=== PATIENT | female | born 1955 | race Caucasian/White ===

== ENCOUNTER 2017-03-19 16:06 | Outpatient (CLI) | payer OTHER ==
--- NOTE | 2017-03-20 12:23 | XRAY Report ---
CERVICAL SPINE AP, LATERAL, OBLIQUES, AND ODONTOID VIEW: 03/19/2017 CLINICAL HISTORY: Neck pain. FINDINGS: Minimal spondylolisthesis is noted of C2 in relationship to C3. This most likely is a res ult of either mild muscle spasm or osteoarthritis of the facet joints. Moderate degree of disk space narrowing is noted at C3-4, C4-5, and C6-7. Mild disk space narrowing is noted at C5-6. Mild spurr ing is noted at the uncinate processes of C4, C5, C6, and C7. Prominent posterior spur formation is noted on the right at C3-4, C4-5, C5-6, and C6-7 with mild posterior spur formation seen at C7-T1. M oderate degree of posterior spur formation is noted on the left at C3-4, C4-5, C5-6, and C6-7. Mild posterior spur formation is noted on the left at C7-T1. Odontoid process appears intact. IMPRESSION: MODERATE DEGREE OF OSTEOARTHRITIS OF THE C-SPINE IS NOTED DISCUSSED ABOVE. JOB #: [id number] EXT JOB #:[id number]
== END 2017-03-19 16:07 | disposition home or self-care (01) ==
LOC: DI 16:06
PROVIDERS: ATTEND Physician Assistant Medical
DX: M47.892 Other spondylosis, cervical region (principal); M43.12 Spondylolisthesis, cervical region
CPT/HCPCS: 72050

== ENCOUNTER 2017-05-26 06:18 | Day surgery (SDC) | payer OTHER ==
[2017-05-26] MEDS ORDERED: LACTATED RINGERS 1,000 ML IV ONE ×2 (07:06→08:35)
[2017-05-26] MEDS ORDERED: LIDO GARGLE 30 ML BOTTLE PO ONE (07:45)
[2017-05-26] MEDS ORDERED: fentaNYL 100 MCG/2 ML VIAL IVP ONE (07:57)
[2017-05-26] MEDS ORDERED: MIDAZOLAM 2 MG/2 ML VIAL IVP ONE (07:57)
[2017-05-26 09:24] VITALS: BP 129/79
== END 2017-05-26 06:19 | disposition home or self-care (01) ==
LOC: SDS 06:18
PROVIDERS: ATTEND Surgery
PROC: 0DB48ZX Excision of Esophagogastric Junction, Via Natural or Artificial Opening Endoscopic, Diagnostic (ICD-10-PCS; principal; 2017-05-26 07:30)
DX: K21.0 Gastro-esophageal reflux disease with esophagitis (principal); K44.9 Diaphragmatic hernia without obstruction or gangrene; F41.9 Anxiety disorder, unspecified; F32.9 Major depressive disorder, single episode, unspecified; E55.9 Vitamin D deficiency, unspecified; E78.5 Hyperlipidemia, unspecified
CPT/HCPCS: 43239; 87081; A9270; J7120; 88305

== ENCOUNTER 2017-07-14 13:21 | Day surgery (SDC) | payer OTHER ==
[2017-07-14] MEDS ORDERED: LACTATED RINGERS 1,000 ML IV ONE (14:15)
[2017-07-14] MEDS ORDERED: fentaNYL 100 MCG/2 ML VIAL IVP ONE (15:58)
[2017-07-14] MEDS ORDERED: MIDAZOLAM 2 MG/2 ML VIAL IVP ONE (15:58)
[2017-07-14 16:43] VITALS: BP 105/68
== END 2017-07-14 13:22 | disposition home or self-care (01) ==
LOC: SDS 13:21
PROVIDERS: ATTEND Surgery
PROC: 0DBP8ZX Excision of Rectum, Via Natural or Artificial Opening Endoscopic, Diagnostic (ICD-10-PCS; principal; 2017-07-14 14:45)
DX: K62.89 Other specified diseases of anus and rectum (principal); K57.30 Diverticulosis of large intestine without perforation or abscess without bleeding; Z87.891 Personal history of nicotine dependence
CPT/HCPCS: 45380; J7120

== ENCOUNTER 2017-09-25 08:56 | Outpatient (CLI) | payer OTHER ==
[2017-09-25 09:37] LABS: BASOPHILS % (AUTO) 0.6 %; EOSINOPHILS # (AUTO) 0.3 10^3/uL (0.0-0.7); EOSINOPHILS % (AUTO) 4.6 %; HGB - HEMOGLOBIN 12.9 g/dL (12.0-16.0); LYMPHOCYTES # (AUTO) 1.8 10^3/uL (1.5-3.5); LYMPHOCYTES % (AUTO) 30.1 %; MEAN CORPUSCULAR HEMOGLOBIN 30.4 pg (27.0-31.0); MEAN CORPUSCULAR HGB CONC 34.4 g/dL (32.0-36.0); MEAN CORPUSCULAR VOLUME 88.3 fL (81.0-99.0); MEAN PLATELET VOLUME 6.5 fL (7.9-10.8); MONOCYTES # (AUTO) 0.4 10^3/uL (0.0-1.0); MONOCYTES % (AUTO) 7.1 %; NEUTROPHILS # (AUTO) 3.4 10^3/uL (1.5-6.6); NEUTROPHILS % (AUTO) 57.6 %; PLT - PLATELET COUNT 277 10^3/uL (130-450); RED BLOOD COUNT 4.25 10^6/uL (4.20-5.40); RED CELL DISTRIBUTION WIDTH 13.4 % (12.0-15.0); WHITE BLOOD COUNT 5.9 x10^3/uL (4.8-10.8)
[2017-09-25 10:10] LABS: ALBUMIN 4.2 g/dL (3.2-5.5); ALBUMIN/GLOBULIN RATIO 1.3 (1.0-2.2); ALKALINE PHOSPHATASE 97 IU/L (42-121); ALT ALANINE AMINOTRANSFERASE 30 IU/L (10-60); AST ASPARTATE AMINOTRANSFERASE 28 IU/L (10-42); BILIRUBIN,TOTAL 0.6 mg/dL (0.2-1.0); BUN - BLOOD UREA NITROGEN 13 mg/dL (6-20); CALCIUM 9.1 mg/dL (8.5-10.3); CARBON DIOXIDE - CO2 25 mmol/L (21-32); CHLORIDE 102 mmol/L (101-111); CHOL/HDL RATIO 3.5 (<4.4); CHOLESTEROL 219 mg/dL; CREATININE 0.7 mg/dL (0.4-1.0); GFR - MDRD 84 (>89); GLUCOSE 109 mg/dL (70-100); HDL CHOLESTEROL 62 mg/dL; LDL CHOLESTEROL,CALCULATED 126 mg/dL; SODIUM 138 mmol/L (135-145); TOTAL PROTEIN 7.4 g/dL (6.7-8.2); VLDL CHOLESTEROL 31 mg/dL
[2017-09-26 11:51] LABS: HEPATITIS C ANTIBODY NON-REACTIVE (NON-REACTIVE)
== END 2017-09-25 08:57 | disposition home or self-care (01) ==
LOC: LAB 08:56
PROVIDERS: ATTEND Physician Assistant Medical
DX: Z00.00 Encounter for general adult medical examination without abnormal findings (principal); E55.9 Vitamin D deficiency, unspecified; Z79.899 Other long term (current) drug therapy; Z11.59 Encounter for screening for other viral diseases
CPT/HCPCS: 36415; 80053; 80061; 82306; 83721; 84443; 85025; 86803

== ENCOUNTER 2017-12-25 11:15 | Outpatient (CLI) | payer OTHER ==
--- NOTE | 2017-12-26 14:15 | Mammography Report ---
DIGITAL SCREENING MAMMOGRAM: 12/25/2017 CLINICAL INDICATION: A 62-year-old nulliparous patient for screening. COMPARISON: 01/2016, 12/2014, 08/2013, 08/2012, 03/2011, 03/2010. TECHNIQUE: Routine CC and MLO projections were obtained of the breasts. FINDINGS: Parenchymal tissue within the breasts is predominantly fatty replaced. There are no dominant masses, suspicious microcalcifications, or secondary signs of malignancy. In comparison to the previous studies, there are no significant changes. IMPRESSION: NO MAMMOGRAPHIC EVIDENCE OF MALIGNANCY. NO SIGNIFICANT INTERVAL CHANGES. RECOMMENDATION: Screening mammography is recommended annually. BIRADS category 1 - negative. STANDARD QUALIFYING STATEMENTS: 1. This examination was reviewed with the aid of Computed-Aided Detection (CAD). 2. A negative or benign imaging report should not delay biopsy if clinically suspicious findings are present. Consider surgical consultation if warranted. More than 5% of cancers are not identified by imaging. 3. Dense breasts may obscure an underlying neoplasm. TD: 12/26/2017 14:14
== END 2017-12-25 11:16 | disposition home or self-care (01) ==
LOC: DI 11:15
PROVIDERS: ATTEND Physician Assistant Medical
DX: Z12.31 Encounter for screening mammogram for malignant neoplasm of breast (principal)
CPT/HCPCS: 77067

== ENCOUNTER 2018-01-22 10:24 | Outpatient (CLI) | payer OTHER | END 2018-01-22 10:25 | disposition home or self-care (01) | LOC: LAB.R 10:24 | PROVIDERS: ATTEND Physician Assistant Medical | DX: J02.9 Acute pharyngitis, unspecified (principal) | CPT/HCPCS: 87070 ==

== ENCOUNTER 2018-11-19 12:54 | Outpatient (CLI) | payer MEDICARE, OTHER ==
--- NOTE | 2018-11-19 15:09 | DEXA Report ---
Reason: POSTMENOPAUSAL Procedure Date: 11/19/2018 Accession Number: [id number] / [id number] Procedure: DEX - Dexa Spine and/or Hip CPT Code: FULL RESULT: EXAM: Dexa Spine and/or Hip DATE: 11/19/2018 1:30 PM CLINICAL HISTORY: POSTMENOPAUSAL TECHNIQUE: Dual energy x-ray absorptiometry (DXA) was performed on a [employer] System. Regions measured are the AP Spine, femoral neck, and if needed forearm. COMPARISON: None. In accordance with the International Society for Clinical Densitometry (ISCD) guidelines, data from previous exams may be reanalyzed using current recommendations and techniques. This is done to allow a more accurate basis for comparison with the current study. FINDINGS: The data for the lumbar spine is as follows: BMD (g/cm/cm) T-SCORE Z-SCORE REGION L1 0.884 -2.1 -0.4 L2 0.928 -2.3 -0.6 L3 1.071 -1.1 0.6 L4 1.038 -1.3 0.4 TOTAL 0.982 -1.7 0.0 NOTE: All evaluable vertebrae are used for classification The data for the hip is as follows: BMD (g/cm/cm) T-SCORE Z-SCORE REGION Neck 0.787 -1.8 -0.3 TOTAL 0.851 -1.2 0.0 NOTE: The femoral neck or total proximal femur, whichever is lowest, is used for classification. IMPRESSION: THE WHO CLASSIFICATION BASED ON THE INTERNATIONAL REFERENCE STANDARD IS OSTEOPENIA. THE FRACTURE RISK IS INCREASED. RECOMMENDATION: Patients with diagnosis of osteoporosis or osteopenia should have regular bone mineral density assessment. For those eligible for Medicare, routine testing is allowed once every 2 years. Testing frequency can be increased for patients who have rapidly progressing disease or for those who are receiving medical therapy to restore bone mass. COMMENT: World Health Organization (WHO) definitions for osteoporosis and osteopenia: NORMAL BMD: T-score at -1.0 or higher, fracture risk is low OSTEOPENIA BMD: T-score between -1.0 and -2.5, fracture risk is increased. OSTEOPOROSIS BMD: T-score at -2.5 or lower, fracture risk is high. National Osteoporosis Foundation recommends: 1. Obtain adequate dietary calcium (at least 1200 mg per day) and vitamin D (400-800 international units per day). 2. Participate, as appropriate, in regular weightbearing and muscle-strengthening exercise. 3. Avoid tobacco use and reduce alcohol and caffeine intake. 4. For more detailed information see the website at www.NOF.org.
== END 2018-11-19 12:55 | disposition home or self-care (01) ==
LOC: DI 12:54
PROVIDERS: ATTEND Internal Medicine
DX: M85.89 Other specified disorders of bone density and structure, multiple sites (principal); Z78.0 Asymptomatic menopausal state
CPT/HCPCS: 77080

== ENCOUNTER 2018-12-07 09:59 | Outpatient (CLI) | payer MEDICARE, OTHER | END 2018-12-07 10:00 | disposition home or self-care (01) | LOC: SC 09:59 | PROVIDERS: ATTEND Internal Medicine Pulmonary Disease | DX: G47.10 Hypersomnia, unspecified (principal); R06.81 Apnea, not elsewhere classified; R06.83 Snoring; G47.8 Other sleep disorders; R41.89 Other symptoms and signs involving cognitive functions and awareness | CPT/HCPCS: 99203; G0463; 99212 ==

== ENCOUNTER 2018-12-24 20:30 | Outpatient (CLI) | payer MEDICARE, OTHER | END 2018-12-24 20:31 | disposition home or self-care (01) | LOC: SC 20:30 | PROVIDERS: ATTEND Internal Medicine Pulmonary Disease | DX: G47.33 Obstructive sleep apnea (adult) (pediatric) (principal); G47.61 Periodic limb movement disorder | CPT/HCPCS: 95810 ==

== ENCOUNTER 2018-12-31 13:48 | Outpatient (CLI) | payer MEDICARE, OTHER ==
--- NOTE | 2018-12-31 16:22 | Mammography Report ---
Reason: SCREENING MAMMO Procedure Date: 12/31/2018 Accession Number: [id number] / [id number] Procedure: DANIS - Screening Mammo w/Dino CPT Code: FULL RESULT: EXAM: Screening Mammo w/Dino DATE: 12/31/2018 2:24 PM CLINICAL HISTORY: Routine screening TECHNIQUE: (B) - Bilateral CC and MLO views were obtained. COMPARISON: 12/25/2017, 02/14/2016, 01/27/2015 and 08/20/2013 PARENCHYMAL PATTERN: (F) - The breasts demonstrate diffuse fatty replacement bilaterally. FINDINGS: There is no significant interval change. There are no suspicious masses, calcifications, or areas of distortion. IMPRESSION: Negative examination. BI-RADS category 1. RECOMMENDATION: (ANNUAL) - Recommend routine annual screening mammography. BI-RADS CATEGORY: (1) - Negative. STANDARD QUALIFYING STATEMENTS: 1. This examination was not reviewed with the aid of Computer-Aided Detection (CAD). 2. A negative or benign imaging report should not preclude biopsy if clinically suspicious findings are present. 3. Dense breasts may obscure an underlying neoplasm. 4. This examination was reviewed with the aid of 3D breast imaging (tomosynthesis).
== END 2018-12-31 13:49 | disposition home or self-care (01) ==
LOC: DI 13:48
PROVIDERS: ATTEND Internal Medicine
DX: Z12.31 Encounter for screening mammogram for malignant neoplasm of breast (principal)
CPT/HCPCS: 77063; 77067

== ENCOUNTER 2019-01-04 08:16 | Outpatient (CLI) | payer MEDICARE, OTHER | END 2019-01-04 08:17 | disposition home or self-care (01) | LOC: SC 08:16 | PROVIDERS: ATTEND Nurse Practitioner Family | DX: G47.33 Obstructive sleep apnea (adult) (pediatric) (principal); G47.61 Periodic limb movement disorder | CPT/HCPCS: 99214; G0463; 99212 ==

== ENCOUNTER 2019-01-28 08:06 | Outpatient (CLI) | payer MEDICARE, OTHER ==
[2019-01-28 08:46] LABS: ALBUMIN 4.1 g/dL (3.2-5.5); ALBUMIN/GLOBULIN RATIO 1.3 (1.0-2.2); ALKALINE PHOSPHATASE 74 IU/L (42-121); ALT ALANINE AMINOTRANSFERASE 12 IU/L (10-60); AST ASPARTATE AMINOTRANSFERASE 21 IU/L (10-42); BILIRUBIN,TOTAL 0.6 mg/dL (0.2-1.0); BUN - BLOOD UREA NITROGEN 21 mg/dL (6-20); CARBON DIOXIDE - CO2 27 mmol/L (21-32); CHLORIDE 101 mmol/L (101-111); CHOL/HDL RATIO 5.1 (<4.4); CHOLESTEROL 262 mg/dL; CREATININE 0.7 mg/dL (0.4-1.0); GFR - MDRD 84 (>89); GLUCOSE 97 mg/dL (70-100); HDL CHOLESTEROL 51 mg/dL; LDL CHOLESTEROL,CALCULATED 174 mg/dL; LDL/HDL RATIO 3.4 (<4.4); SODIUM 139 mmol/L (135-145); TOTAL PROTEIN 7.2 g/dL (6.7-8.2); VLDL CHOLESTEROL 37 mg/dL
[2019-01-28 08:51] LABS: HB2 TOTAL 13.8 g/dL; HEMOGLOBIN A1C 0.61 g/dL; HEMOGLOBIN A1C % 6.2 % (4.6-6.2)
== END 2019-01-28 08:07 | disposition home or self-care (01) ==
LOC: LAB 08:06
PROVIDERS: ATTEND Internal Medicine
DX: R73.02 Impaired glucose tolerance (oral) (principal); E78.5 Hyperlipidemia, unspecified
CPT/HCPCS: 36415; 80053; 80061; 83036; 83721

== ENCOUNTER 2019-04-28 16:12 | Outpatient (CLI) | payer MEDICARE, OTHER ==
[2019-04-28 17:43] VITALS: BP 116/66
--- NOTE | 2019-04-28 17:43 | SLEEP CARE CONSULTATION ---
Information from patient questionnaire entered by Stacey Patino. I have reviewed and concur with the information entered by Stacey Patino. This document represents the service I personally performed and the decisions made by me, Shweta Christianson, RN, MSN, WIRE WEAVER. History of Present Illness Previous diagnosis: Mild, Obstructive Sleep Apnea-Hypopnea Syndrome AHI: 13.4 Reason for CPAP/BiPAP follow up: first compliance Equipment type: CPAP Equipment obtained from: [facility] Mask style: Full face (Dreamwear full face) Mask brand: Respironics Last cushion change: a week or 2 ago CPAP Compliance Data - Data Reviewed with Patient Average duration of nightly device use: 5.2 Compliance rate %: 100 Current pressure setting (cmH2O): 4-15 Humidity settin Heated hose settin Average residual AHI: 7.5 Central apnea: 1.0 Obstructive apnea: 2.0 Hypopnea: 4.5 Average large leak: 4 mins 42 secs Subjective Patient concerns: reports: mask discomfort (seems like the mask is too much for her face. She would like to try a nasal mask. ), dry mouth, nose, throat (1-2 times a week for oral dryness. ), other (She is pulling off after 4 hours because she does not like the face. ). denies: aerophagia, air blowing in eyes, mask leak noise, condensation in mask/hose, nasal congestion, epistaxis Observed to snore while using device: No (by traveling companions) Current pressure setting perceived as: comfortable On therapy, patient: reports: other (no change with CPAP use). denies: sleeping better, awakening more refreshed, being more awake and alert during the day, more rested overall, drowsiness while driving Initial [place] Sleepiness Scale score: 8 Current [place] Sleepiness Scale score: 5 Allergies and Home Medications Known drug allergies: No Home medication list reviewed: Yes Allergy and home medication list: Fluoxetine HCL 20mg cap one daily Gabapentin 300mg cap one daily at bedtime prn Omeprazole 20mg cap one daily Zyrtec Allergy (Ceterizine) 10mg cap one daily Probiotic Cap one daily Vitamin D 1000IU cap one daily Calcium Carbonate 600mg tab one daily Review of Systems Review of systems same as previous: No (two cataract surgeries with lens implant. Steroid injection for back. ) Physical Exam Blood Pressure: 116/66 Cuff size: regular Heart Rate: 104 (regular) O2 Saturation: 98 Height: 5 ft 3.5 in Weight (kg): 60.781 kg Body Mass Index: 23.3 BMI Classification: Healthy weight Impression and Plan 1. Obstructive Sleep Apnea-Hypopnea Syndrome, mild, with good treatment compliance and elevated residual apnea control. On CPAP therapy, the patient has noted no change. She is also not using CPAP all through the night as dislikes the largeness of mask interface. She asked for a smaller interface from [facility] but was declined. She also has oral dryness, so I showed her how to adjust the humidity up on a sample CPAP. She can reduce the heated hose is still dryness. Hand written instructions given. For her mask discomfort, I showed her samples I had and she chose the Wisp Dreamwear mask. I fitted her with a small cushion and made the frame smaller. She felt the mask more comfortable than current mask. It hoped that she is able to use through the night now. She was advised how maximum benefit of CPAP is found when able to use CPAP with all sleep. In addition, the last hours of sleep have more REM sleep which has increased apnea risk. If she finds mouth open, a chinstrap fitting can be completed. I also wrote an order for [facility] to be aware of new mask style. For residual AHI, I will change her autoCPAP pressure to [id number]. Patient is advised to contact me if the pressure change in uncomfortable. Patient's apnea severity and rationale for treatment to reduce apnea, improve sleep quality and reduce cardiovascular and cerebrovascular events was reviewed. I also reviewed the benefit of consistent device use of CPAP for gastric reflux, depression/anxiety. She would also like to camp with CPAP in her new camper. I will send her the Respironics battery options flyer when I receive from [facility]. * Change CPAP pressure to 10-15 cmH2O * Try new Wisp Dreamwear - small mask. * Adjust humidity / heated hose. * Use CPAP with all sleep. * Notify me if snoring with mask or feeling that the pressure is too much or too little * Return for follow up in 1-2 months, or sooner if concerns arise I spent 100% of this 45 minute visit face to face with the patient with greater than 50% of this was spent time counseling the patient and coordination of care.
== END 2019-04-28 16:13 | disposition home or self-care (01) ==
LOC: SC 16:12
PROVIDERS: ATTEND Nurse Practitioner Family
DX: G47.33 Obstructive sleep apnea (adult) (pediatric) (principal)
CPT/HCPCS: 99215; G0463; 99212

== ENCOUNTER 2019-06-29 10:33 | Outpatient (CLI) | payer MEDICARE, OTHER ==
[2019-06-29 11:47] VITALS: BP 110/60
--- NOTE | 2019-06-29 11:47 | SLEEP CARE CONSULTATION ---
Information from patient questionnaire entered by Kelly Arnold. I have reviewed and concur with the information entered by Kelly Arnold. This document represents the service I personally performed and the decisions made by me, Shweta Christianson, RN, MSN, LIBRARY SERVICES COORDINATOR. History of Present Illness Previous diagnosis: Mild, Obstructive Sleep Apnea-Hypopnea Syndrome AHI: 13.4 Reason for follow up: other (2 Month - pressure change) Equipment type: CPAP Equipment obtained from: [facility] Mask style: Full face Mask brand: Resmed Backup mask available: Yes Last cushion change: 1 month ago Prior sleep studies: Yes HPI additional information: Patient came in today reporting that she no longer wants to use CPAP. She tried to use it longer as advised to see if benefit but it only made her wake up frequently until she takes off the mask. The mask is constantly leaking. This is the second mask and only reduces leaks if mask uncomfortable. Once the mask is off, she sleeps well and is more rested. I gave her a mask but she was unable to use as was not able to connect to hose. It seems there must have been an adaptor from previous mask. She put it on today and I showed her how to connect to hose but still the mask felt uncomfortable. CPAP Compliance Data - Data Reviewed with Patient Average duration of nightly device use: 6h 25m Compliance rate %: 98.3 Current pressure setting (cmH2O): 10-15 Humidity settin Heated hose settin Average residual AHI: 5.3 Average large leak: 14 minutes On Oxygen: No Subjective Patient concerns: reports: mask discomfort (overtightening ), nasal congestion (chronic ), dry mouth, nose, throat (significant dry mouth and humidity turned down unknowingly to 3). denies: aerophagia, air blowing in eyes, mask leak noise, condensation in mask/hose, epistaxis Observed to snore while using device: No (single) Current pressure setting perceived as: comfortable (after a few nights) On therapy, patient: reports: other (She does not sleep as well with CPAP then with it. ) Initial [place] Sleepiness Scale score: 8 Current [place] Sleepiness Scale score: 5 Allergies and Home Medications Home medication list reviewed: Yes (inhaler added. Stopped gabapentin and probiotic) Review of Systems Review of systems same as previous: No (diagnosed with asthma) Physical Exam Blood Pressure: 110/60 Cuff size: long Heart Rate: 83 O2 Saturation: 97 Height: 5 ft 3.5 in Weight: 139 lb 3.2 oz Body Mass Index: 24.3 BMI Classification: Healthy weight Impression and Plan 1. Obstructive Sleep Apnea-Hypopnea Syndrome, moderate, with good treatment compliance and better apnea control. The residual AHI reduced from 7.4 to 5.3 with pressure change. However, on CPAP therapy, the patient feels her sleep is d isrupted and she is more tired overall. I discussed the things that are bothering her seem to be the mask fit and comfort, the idea of a mask on her face and showed her other styles but she still feels it would be uncomfortable for her. I also discussed how the dryness could be rememdied with change in humdity. In addition, I discussed other measures she could use to reduce her apnea risk such as an oral appliance or positional therapy. She would prefer not to do anything at this point and see how she feels. I encouraged her to discuss with her PCP and inform me of her final decision. If she decides to try positional therapy, then I would want to see her in 2 months. She also needs to check with insurance about return of CPAP etc. This will take a stop prescription from me but I would like her to think about her treatment options and discuss with her PCP before returning the CPAP. Patient's apnea severity and rationale for treatment to reduce apnea, improve sleep quality and reduce ca rdiovascular and cerebrovascular events was reviewed. In addition control of her apnea and better sleep can benefit her depression. * Follow up with PCP to discuss stopping CPAP and not pursuing any treatment. * Consider other treatment options discussed for apnea * Notify this office if want to pursue some form of apnea treatment for proper follow up. I spent 100% of this 35 minute visit face to face with the patient with greater than 50% of this was spent time counseling the patient and coordination of care.
== END 2019-06-29 10:34 | disposition home or self-care (01) ==
LOC: SC 10:33
PROVIDERS: ATTEND Nurse Practitioner Family
DX: G47.33 Obstructive sleep apnea (adult) (pediatric) (principal)
CPT/HCPCS: 99214; G0463; 99212

== ENCOUNTER 2020-03-09 09:33 | Outpatient (CLI) | payer MEDICARE, OTHER ==
--- NOTE | 2020-03-09 16:42 | DEXA Report ---
Reason: POSTMENOPAUSAL Procedure Date: 03/09/2020 Accession Number: [id number] / [id number] Procedure: DEX - Dexa Spine and/or Hip CPT Code: Final Report FULL RESULT: PROCEDURE: Dexa Spine and/or Hip INDICATIONS: POSTMENOPAUSAL TECHNIQUE: Dual energy x-ray absorptiometry (DXA) was performed on a [employer] System. Regions measured are the AP Spine, femoral neck, and if needed forearm. COMPARISON: None. FINDINGS: Lumbar Spine: Bone Mineral Density 0.966 g/cm/cm,T score -1.8, osteopenia Left Hip: Bone Mineral Density 0.843 g/cm/cm,T score -1.3, osteopenia Left Femoral Neck: Bone Mineral Density 0.810 g/cm/cm, T score -1.6, osteopenia (T score greater or equal to -1.0: NORMAL) (T score from -1.1 to -2.4: OSTEOPENIA) (T score less than or equal to -2.5 to: OSTEOPOROSIS) Impression: Osteopenia Patients with diagnosis of osteoporosis or osteopenia should have regular bone mineral density assessment. For those eligible for Medicare, routine testing is allowed once every 2 years. Testing frequency can be increased for patients who have rapidly progressing disease or for those who are receiving medical therapy to restore bone mass. Reviewed by: Debbie Duran MD, PhD on 03/09/2020 4:41 PM PDT Approved by: Debbie Duran MD, PhD on 03/09/2020 4:41 PM PDT Station ID: [id number]
== END 2020-03-09 09:34 | disposition home or self-care (01) ==
LOC: DI 09:33
PROVIDERS: ATTEND Family Medicine
DX: M85.89 Other specified disorders of bone density and structure, multiple sites (principal); Z78.0 Asymptomatic menopausal state
CPT/HCPCS: 77080

== ENCOUNTER 2020-05-11 09:50 | Outpatient (CLI) | payer MEDICARE, OTHER ==
--- NOTE | 2020-05-11 12:11 | Mammography Report ---
BILATERAL DIGITAL SCREENING MAMMOGRAM 3D/2D: 05/11/2020 CLINICAL: Routine screening. Comparison is made to exams dated: 12/31/2018 mammogram, 02/14/2016 mammogram, 12/25/2017 mammogram, 12/31 mammogram, 08/20/2013 mammogram, and 08/04/2012 mammogram - [facility]. The tissue of both breasts is predominantly fatty. No significant masses, calcifications, or other findings are seen in either breast. There has been no significant interval change. IMPRESSION: NEGATIVE There is no mammographic evidence of malignancy. A 1 year screening mammogram is recommended. This exam was interpreted at Station ID: [id number]. NOTE: For mammograms, a report in lay terms will be sent to the patient. Approximately 15% of breast malignancies will not be visualized mammographically. In the management of a palpable breast mass, a negative mammogram must not discourage biopsy of a clinically suspicious lesion. Electronically Signed By: Alvino mcintyre/pura:05/11/2020 10:32:35 ACR BI-RADS Category 1: Negative 3341F PARENCHYMAL PATTERN: (F) - The breast(s) demonstrate(s) diffuse fatty replacement. BI-RADS CATEGORY: (1) - 1 RECOMMENDATION: (ANNUAL) - Recommend routine annual screening mammography. [id number] 1 year screening LATERALITY: (B)
== END 2020-05-11 09:51 | disposition home or self-care (01) ==
LOC: DI 09:50
PROVIDERS: ATTEND Internal Medicine
DX: Z12.31 Encounter for screening mammogram for malignant neoplasm of breast (principal)
CPT/HCPCS: 77063; 77067

== ENCOUNTER 2021-02-10 08:57 | Outpatient (CLI) | payer MEDICARE, OTHER | END 2021-02-10 08:58 | disposition home or self-care (01) | LOC: LAB 08:57 | PROVIDERS: ATTEND General Practice | DX: Z01.812 Encounter for preprocedural laboratory examination (principal); K62.3 Rectal prolapse; K62.6 Ulcer of anus and rectum; K64.8 Other hemorrhoids; Z20.822 Contact with and (suspected) exposure to COVID-19 ==

== ENCOUNTER 2021-04-25 13:44 | Outpatient (CLI) | payer MEDICARE, OTHER ==
--- NOTE | 2021-04-25 14:27 | SLEEP CARE CONSULTATION ---
Information from patient questionnaire entered by Stacey Patino. I have reviewed and concur with the information entered by Stacey Patino. This document represents the service I personally performed and the decisions made by , Michelle Marie ARNP. History of Present Illness Service Date and Time: 04/25/2021 1344 Previous diagnosis: Mild, Obstructive Sleep Apnea-Hypopnea Syndrome AHI: 13.4 (in 2019) Reason for follow up: annual (last seen 06/2019) Equipment type: CPAP Equipment obtained from: [facility] (getting supplies as needed) Mask style: Full face (and nasal) Mask brand: Respironics Backup mask available: Yes (other mask) Last cushion change: recently Prior sleep studies: Yes Year and Where: 2019 - [facility] Type of Sleep Study: Polysomnography HPI additional information: MICHELLE BOIWE was diagnosed to have mild, AHI 13.4, obstructive sleep apnea- hypopnea syndrome and returned today for CPAP therapy annual follow-up. CPAP Compliance Data - Data Reviewed with Patient Average duration of nightly device use: 4 hr 47 min Compliance rate %: 46.7 Current pressure setting (cmH2O): 10-15 Humidity settin Heated hose settin Average residual AHI: 6.1 Average large leak: 6 min 41 sec Subjective Patient concerns: reports: mask discomfort, air blowing in eyes, mask leak noise, dry mouth, nose, throat. denies: aerophagia, condensation in mask/hose, nasal congestion, epistaxis, other Observed to snore while using device: No Current pressure setting perceived as: comfortable On therapy, patient: reports: sleeping better, awakening more refreshed, being more awake and alert during the day, more rested overall. denies: drowsiness while driving Initial [place] Sleepiness Scale score: 8 (in 2019) Current [place] Sleepiness Scale score: 3 Allergies and Home Medications Home medication list reviewed: Yes (started on Lexapro to replace Prozac) Review of Systems Review of systems same as previous: No (had a robotic rectopexy on February 13, 2021) Physical Exam Heart Rate: 93 O2 Saturation: 98 Height: 5 ft 3 in Weight: 143 lb Body Mass Index: 25.3 BMI Classification: Overweight Impression and Plan 1. Obstructive Sleep Apnea-Hypopnea Syndrome, mild, with poor treatment compliance and fair apnea control with mildly elevated residual AHI. On CPAP therapy, the patient has better sleep quality and is more rested overall. She has not been able to use the machine for long periods due to mask issues. She has tried to get at least 4 hours before giving up for the night. Patient has been having some nasal dryness and mouth dryness. She switches between a full face mask and a Wisp nasal mask. She really likes the fit for the Wisp mask better but her mouth will come open and become dry. I advised her to try using a chinstrap to keep her mouth closed when using the Wisp. I also advised her to try to increase her humidity on the machine to 4 because it is on 3 to help reduce oral dryness. She voiced understanding. I informed the patient that [employer] has a recall on several devices like the patients machine. Patient was encouraged to register their device online with [employer] for the recall to see if their device is affected. If their device is affected they should start a claim. Patient denies any black particles seen in machine or hoses, any unusual odors coming from device. Patient has not experienced any physical symptoms such as upper airway irritation, headache, skin or eye irritation, asthma, nausea/vomiting, difficulty breathing or chest pain. Patient informed that they may use an inline CPAP filter that they can obtain online to reduce chance of any particles being inhaled or ingested. We discussed thoroughly the health risks of not using the CPAP versus continuing use with the filter in place. If patient is not able to sleep due to waking up choking, gasping for air or other respiratory distress that they may decide to continue u sing it until it is either replaced or repaired. Patient voiced understanding and agreement with plan. Patient's apnea severity and rationale for treatment to reduce apnea, improve sleep quality and reduce cardiovascular and cerebrovascular events was reviewed. I also reviewed the benefit of consistent device use of CPAP for depression. * Continue auto CPAP pressure at 10-15 cmH2O * Patient to register her device for [employer] recall. * Notify me if snoring with mask or feeling that the pressure is too much or too little * Attempt to lose weight * Call this office if any problems using CPAP * Return for follow up in 1 year, or sooner if concerns arise Counseling Topics: Spare mask, Weight loss health impact Visit Type: In Office Time Spent with Patient (minutes): 27 Provider Statement: I spent 100% of the Face to Face Visit with the patient with greater than 50% spent counseling the patient and coordination of care.
== END 2021-04-25 13:45 | disposition home or self-care (01) ==
LOC: SC 13:44
PROVIDERS: ATTEND Nurse Practitioner Family
DX: G47.33 Obstructive sleep apnea (adult) (pediatric) (principal)
CPT/HCPCS: 99213; G0463; 99212

== ENCOUNTER 2021-05-28 13:57 | Outpatient (CLI) | payer MEDICARE, OTHER | END 2021-05-28 13:58 | disposition home or self-care (01) | LOC: COV 13:57 | PROVIDERS: ATTEND General Practice | DX: Z01.812 Encounter for preprocedural laboratory examination (principal); K64.8 Other hemorrhoids; Z20.822 Contact with and (suspected) exposure to COVID-19 ==

== ENCOUNTER 2021-08-01 09:34 | Outpatient (CLI) | payer MEDICARE, OTHER ==
[2021-08-01 10:03] LABS: BASOPHILS % (AUTO) 0.5 %; EOSINOPHILS # (AUTO) 0.2 10^3/uL (0.0-0.7); EOSINOPHILS % (AUTO) 3.5 %; HCT - HEMATOCRIT 37.1 % (37.0-47.0); HGB - HEMOGLOBIN 12.2 g/dL (12.0-16.0); LYMPHOCYTES # (AUTO) 2.1 10^3/uL (1.5-3.5); LYMPHOCYTES % (AUTO) 34.8 %; MEAN CORPUSCULAR HEMOGLOBIN 29.3 pg (27.0-31.0); MEAN CORPUSCULAR HGB CONC 32.9 g/dL (32.0-36.0); MEAN PLATELET VOLUME 8.3 fL (7.9-10.8); MONOCYTES # (AUTO) 0.5 10^3/uL (0.0-1.0); MONOCYTES % (AUTO) 7.9 %; NEUTROPHILS # (AUTO) 3.2 10^3/uL (1.5-6.6); PLT - PLATELET COUNT 253 10^3/uL (130-450); RED BLOOD COUNT 4.17 10^6/uL (4.20-5.40); RED CELL DISTRIBUTION WIDTH 12.9 % (12.0-15.0); WHITE BLOOD COUNT 6.1 x10^3/uL (4.8-10.8)
[2021-08-01 10:29] LABS: ALBUMIN 4.1 g/dL (3.2-5.5); ALBUMIN/GLOBULIN RATIO 1.2 (1.0-2.2); ALKALINE PHOSPHATASE 77 IU/L (42-121); ALT ALANINE AMINOTRANSFERASE 16 IU/L (10-60); AST ASPARTATE AMINOTRANSFERASE 19 IU/L (10-42); BILIRUBIN,TOTAL 0.4 mg/dL (0.2-1.0); BUN - BLOOD UREA NITROGEN 15 mg/dL (6-20); CARBON DIOXIDE - CO2 32 mmol/L (21-32); CHLORIDE 100 mmol/L (101-111); CHOL/HDL RATIO 4.5 (<4.4); CHOLESTEROL 240 mg/dL; CREATININE 0.6 mg/dL (0.4-1.0); GFR - MDRD 99 (>89); GLUCOSE 103 mg/dL (70-100); HDL CHOLESTEROL 53 mg/dL; LDL CHOLESTEROL,CALCULATED 149 mg/dL; LDL/HDL RATIO 2.8 (<4.4); POTASSIUM 4.1 mmol/L (3.5-5.0); SODIUM 137 mmol/L (135-145); TOTAL PROTEIN 7.4 g/dL (6.7-8.2); TRIGLYCERIDES 188 mg/dL; VLDL CHOLESTEROL 38 mg/dL
[2021-08-01 10:41] LABS: THYROID STIMULATING HORMONE 2.64 uIU/mL (0.34-5.60)
[2021-08-01 10:46] LABS: FERRITIN 46.8 ng/mL (11.0-306.8)
[2021-08-01 12:16] LABS: ESTIMATED AVERAGE GLUCOSE 117 mg/dL (70-100); HEMOGLOBIN A1c% 5.7 % (4.27-6.07)
== END 2021-08-01 09:35 | disposition home or self-care (01) ==
LOC: LAB 09:34
PROVIDERS: ATTEND Internal Medicine
DX: R51.9 Headache, unspecified (principal); Z13.6 Encounter for screening for cardiovascular disorders; Z79.899 Other long term (current) drug therapy; G47.33 Obstructive sleep apnea (adult) (pediatric); K21.9 Gastro-esophageal reflux disease without esophagitis; N95.1 Menopausal and female climacteric states; R73.01 Impaired fasting glucose; L20.9 Atopic dermatitis, unspecified; G47.00 Insomnia, unspecified; F41.9 Anxiety disorder, unspecified
CPT/HCPCS: 36415; 80053; 80061; 82728; 83036; 83721; 84443; 85025

== ENCOUNTER 2021-08-29 12:39 | Outpatient (CLI) | payer MEDICARE, OTHER ==
--- NOTE | 2021-08-30 12:04 | Mammography Report ---
BILATERAL DIGITAL SCREENING MAMMOGRAM 3D/2D: 08/29/2021 CLINICAL: Routine screening. Comparison is made to exams dated: 05/11/2020 mammogram, 12/31/2018 mammogram, and 12/25/2017 mammogram - [facility]. The tissue of both breasts is predominantly fatty. No significant masses, calcifications, or other findings are seen in either breast. There has been no significant interval change. IMPRESSION: NEGATIVE There is no mammographic evidence of malignancy. A 1 year screening mammogram is recommended. This exam was interpreted at Station ID: [id number]. NOTE: For mammograms, a report in lay terms will be sent to the patient. Approximately 15% of breast malignancies will not be visualized mammographically. In the management of a palpable breast mass, a negative mammogram must not discourage biopsy of a clinically suspicious lesion. Electronically Signed By: Erik Jackson M.D. ar/penrad:08/29/2021 13:27:00 ACR BI-RADS Category 1: Negative 3341F PARENCHYMAL PATTERN: (F) - The breast(s) demonstrate(s) diffuse fatty replacement. BI-RADS CATEGORY: (1) - 1 RECOMMENDATION: (ANNUAL) - Recommend routine annual screening mammography. [id number] 1 year screening LATERALITY: (B)
== END 2021-08-29 12:40 | disposition home or self-care (01) ==
LOC: DI 12:39
PROVIDERS: ATTEND Internal Medicine
DX: Z12.31 Encounter for screening mammogram for malignant neoplasm of breast (principal)

== ENCOUNTER 2022-03-02 09:22 | Outpatient (CLI) | payer MEDICARE, OTHER | END 2022-03-02 09:23 | disposition home or self-care (01) | LOC: RT 09:22 | PROVIDERS: ATTEND Internal Medicine | DX: R06.2 Wheezing (principal); R09.81 Nasal congestion | CPT/HCPCS: 94010 ==

== ENCOUNTER 2022-08-08 08:54 | Outpatient (CLI) | payer MEDICARE, OTHER ==
[2022-08-08 09:09] LABS: BASOPHILS % (AUTO) 0.4 %; EOSINOPHILS # (AUTO) 0.4 10^3/uL (0.0-0.7); EOSINOPHILS % (AUTO) 5.6 %; HCT - HEMATOCRIT 38.3 % (37.0-47.0); HGB - HEMOGLOBIN 12.4 g/dL (12.0-16.0); LYMPHOCYTES # (AUTO) 2.2 10^3/uL (1.5-3.5); LYMPHOCYTES % (AUTO) 31.8 %; MEAN CORPUSCULAR HEMOGLOBIN 29.3 pg (27.0-31.0); MEAN CORPUSCULAR HGB CONC 32.4 g/dL (32.0-36.0); MEAN CORPUSCULAR VOLUME 90.5 fL (81.0-99.0); MEAN PLATELET VOLUME 8.5 fL (7.9-10.8); MONOCYTES # (AUTO) 0.6 10^3/uL (0.0-1.0); MONOCYTES % (AUTO) 8.9 %; NEUTROPHILS # (AUTO) 3.6 10^3/uL (1.5-6.6); PLT - PLATELET COUNT 312 10^3/uL (130-450); RED BLOOD COUNT 4.23 10^6/uL (4.20-5.40); RED CELL DISTRIBUTION WIDTH 13.4 % (12.0-15.0); WHITE BLOOD COUNT 6.8 x10^3/uL (4.8-10.8)
[2022-08-08 09:30] LABS: ALBUMIN 3.9 g/dL (3.2-5.5); ALBUMIN/GLOBULIN RATIO 1.1 (1.0-2.2); ALKALINE PHOSPHATASE 92 IU/L (42-121); ALT ALANINE AMINOTRANSFERASE 12 IU/L (10-60); AST ASPARTATE AMINOTRANSFERASE 17 IU/L (10-42); BILIRUBIN,TOTAL 0.4 mg/dL (0.2-1.0); BUN - BLOOD UREA NITROGEN 15 mg/dL (6-20); CARBON DIOXIDE - CO2 29 mmol/L (21-32); CHLORIDE 100 mmol/L (101-111); CHOL/HDL RATIO 2.8 (<4.4); CHOLESTEROL 192 mg/dL; CREATININE 0.7 mg/dL (0.4-1.0); GFR - MDRD 83 (>89); GLUCOSE 110 mg/dL (70-100); HDL CHOLESTEROL 69 mg/dL; LDL CHOLESTEROL,CALCULATED 99 mg/dL; LDL/HDL RATIO 1.4 (<4.4); POTASSIUM 4.2 mmol/L (3.5-5.0); SODIUM 137 mmol/L (135-145); TOTAL PROTEIN 7.5 g/dL (6.7-8.2); TRIGLYCERIDES 122 mg/dL; VLDL CHOLESTEROL 24 mg/dL
[2022-08-08 09:41] LABS: THYROID STIMULATING HORMONE 3.09 uIU/mL (0.34-5.60)
[2022-08-08 11:29] LABS: ESTIMATED AVERAGE GLUCOSE 108 mg/dL (70-100); HEMOGLOBIN A1c% 5.4 % (4.27-6.07)
== END 2022-08-08 08:55 | disposition home or self-care (01) ==
LOC: LAB 08:54
PROVIDERS: ATTEND Internal Medicine
DX: Z00.00 Encounter for general adult medical examination without abnormal findings (principal); F32.A Depression, unspecified; R42 Dizziness and giddiness; R51.9 Headache, unspecified; N95.1 Menopausal and female climacteric states; R23.2 Flushing; R73.01 Impaired fasting glucose; E78.5 Hyperlipidemia, unspecified; Z79.899 Other long term (current) drug therapy; Z80.41 Family history of malignant neoplasm of ovary
CPT/HCPCS: 36415; 80053; 80061; 82607; 83036; 83721; 84443; 85025

== ENCOUNTER 2022-09-20 14:57 | Outpatient (CLI) | payer MEDICARE, OTHER ==
--- NOTE | 2022-09-24 15:37 | Mammography Report ---
BILATERAL DIGITAL SCREENING MAMMOGRAM 3D/2D: 09/20/2022 Comparison is made to exams dated: 08/29/2021 mammogram, 05/11/2020 mammogram, 12/31/2018 mammogram, mammogram, 02/14/2016 mammogram, and 01/27/2015 mammogram - [facility]. Both breasts are almost entirely fatty (category a/<25% glandular tissue). No significant masses, calcifications, or other findings are seen in either breast. There has been no significant interval change. IMPRESSION: NEGATIVE There is no mammographic evidence of malignancy. A 1 year screening mammogram is recommended. Based on the Tyrer Cuzick model (a risk assessment model) the patients lifetime risk is 3.2% and her 10 year risk is 1.8%. According to the ACR, ACS, and NCCN guidelines, an annual breast MRI exam mary jane g with mammogram is recommended if the patients lifetime risk is 20% or greater. This exam was interpreted at Station ID: [id number]. NOTE: For mammograms, a report in lay terms will be sent to the patient. Approximately 15% of breast malignancies will not be visualized mammographically. In the management of a palpable breast mass, a negative mammogram must not discourage biopsy of a clinically suspicious lesion. Electronically Signed By: Alvino mcintyre/pura:09/23/2022 09:49:40 ACR BI-RADS Category 1: Negative 3341F PARENCHYMAL PATTERN: (F) - The breast(s) demonstrate(s) diffuse fatty replacement. BI-RADS CATEGORY: (1) - 1 RECOMMENDATION: (ANNUAL) - Recommend routine annual screening mammography. [id number] 1 year screening LATERALITY: (B)
== END 2022-09-20 14:58 | disposition home or self-care (01) ==
LOC: DI 14:57
PROVIDERS: ATTEND Internal Medicine
DX: Z12.31 Encounter for screening mammogram for malignant neoplasm of breast (principal)

== ENCOUNTER 2022-12-09 15:01 | Outpatient (CLI) | payer MEDICARE, OTHER ==
--- NOTE | 2022-12-09 15:17 | XRAY Report ---
PROCEDURE: Chest 2 View X-Ray INDICATIONS: COUGH TECHNIQUE: 2 views of the chest were acquired. COMPARISON: None. FINDINGS: Surgical changes and devices: None. Lungs and pleura: No pleural effusions or pneumothorax. Lungs are clear. Mediastinum: Mediastinal contours appear normal. Heart size is normal. Bones and chest wall: No suspicious bony lesions. Overlying soft tissues appear unremarkable. IMPRESSION: No acute cardiopulmonary process. Reviewed by: Shree Quintanilla on 12/09/2022 3:15 PM PDT Approved by: Shree Quintanilla on 12/09/2022 3:15 PM PDT Station ID: [id number]
== END 2022-12-09 15:02 | disposition home or self-care (01) ==
LOC: DI 15:01
PROVIDERS: ATTEND Internal Medicine
DX: R05.3 Chronic cough (principal)

== ENCOUNTER 2023-10-20 14:27 | Outpatient (CLI) | payer MEDICARE, MEDICAID ==
--- NOTE | 2023-10-21 09:33 | Mammography Report ---
BILATERAL DIGITAL SCREENING MAMMOGRAM 3D/2D: 10/20/2023 CLINICAL: Routine screening. Comparison is made to exams dated: 09/20/2022 mammogram, 09/20/2022 mammogram, 08/29/2021 mammogram, mammogram, 12/31/2018 mammogram, and 12/25/2017 mammogram - [facility]. Both breasts are almost entirely fatty (category a/<25% glandular tissue). No significant masses, calcifications, or other findings are seen in either breast. There has been no significant interval change. IMPRESSION: NEGATIVE There is no mammographic evidence of malignancy. A 1 year screening mammogram is recommended. Based on the Tyrer Cuzick model (a risk assessment model) the patient's lifetime risk is 3.0% and her 10 year risk is 1.9%. According to the ACR, ACS, and NCCN guidelines, an annual breast MRI exam mary jane g with mammogram is recommended if the patient's lifetime risk is 20% or greater. This exam was interpreted at Station ID: [id number]. NOTE: For mammograms, a report in lay terms will be sent to the patient. Approximately 15% of breast malignancies will not be visualized mammographically. In the management of a palpable breast mass, a negative mammogram must not discourage biopsy of a clinically suspicious lesion. Electronically Signed By: Kaye wilson/pura:10/20/2023 17:21:51 ACR BI-RADS Category 1: Negative 3341F PARENCHYMAL PATTERN: (F) - The breast(s) demonstrate(s) diffuse fatty replacement. BI-RADS CATEGORY: (1) - 1 Mammogram [id number] 1 year screening LATERALITY: (B)
== END 2023-10-20 14:28 | disposition home or self-care (01) ==
LOC: DI 14:27
PROVIDERS: ATTEND Internal Medicine
DX: Z12.31 Encounter for screening mammogram for malignant neoplasm of breast (principal)

== ENCOUNTER 2023-10-20 14:29 | Outpatient (CLI) | payer MEDICARE, MEDICAID ==
--- NOTE | 2023-10-21 08:07 | DEXA Report ---
PROCEDURE: Dexa Spine and/or Hip INDICATIONS: POST MENOPAUSAL TECHNIQUE: Dual energy x-ray absorptiometry (DXA) was performed on a [employer] System. Regions measur ed are the AP Spine, femoral neck, and if needed forearm. COMPARISON: DEXA, 03/09/2020 FINDINGS: Lumbar Spine: Bone Mineral Density: 0.979 g/cm/cm,T score: -1.7. No statistically thickened change. Left Femoral Neck: Bone Mineral Density: 0.766 g/cm/cm, T score: -2.0. Left Hip: Bone Mineral Density: 0.819 g/cm/cm,T score: -1.5. No statistically significant change. Compared to the last exam dated 03/09/2020, there is no statistically significant change. (T score greater or equal to -1.0: NORMAL) (T score from -1.1 to -2.4: OSTEOPENIA) (T score less than or equal to -2.5 to: OSTEOPOROSIS) Impression: By WHO criteria, this patient has low bone density (osteopenia). No significant change from the last exam. Patients with diagnosis of osteoporosis or osteopenia should have regular bone mineral density assess ment. For those eligible for Medicare, routine testing is allowed once every 2 years. Testing frequ ency can be increased for patients who have rapidly progressing disease or for those who are receivin g medical therapy to restore bone mass. Reviewed by: Gera Garrett MD on 10/21/2023 8:06 AM PST Approved by: Gera Garrett MD on 10/21/2023 8:06 AM PST Station ID: [id number]
== END 2023-10-20 14:30 | disposition home or self-care (01) ==
LOC: DI 14:29
PROVIDERS: ATTEND Internal Medicine
DX: M85.89 Other specified disorders of bone density and structure, multiple sites (principal); Z78.0 Asymptomatic menopausal state